=== PATIENT | female | born 1955 | race Caucasian/White ===

== ENCOUNTER 2020-11-01 21:53 | Emergency (ER) | payer OTHER ==
[~2020-11-01 21:53] MED LIST: ASPIRIN EC81 MG PO; CYCLOBENZAPRINE10 MG PO; MAGNESIUM250 MG PO; NAPROXEN500 MG PO; POTASSIUM99 M1 PO; PRINIVIL10 MG PO; TOPROL XL 25MG25 MG PO; XELJANZ XR11 MG PO; ZOCOR20 MG PO
[2020-11-02] MEDS ORDERED: NORCO 5-325 TA1 EACH PO (01:05)
[2020-11-03] MEDS ORDERED: PRINIVIL20 MG PO (09:18)
[2020-11-03] MEDS ORDERED: TOPROL XL 50 MG50 MG PO (09:18)
[2020-11-03] MEDS ORDERED: NAPROXEN500 MG PO (09:19)
[2020-11-08] MEDS ORDERED: PERCOCET 5-3251 EACH PO (08:08)
[2020-11-08] MEDS ORDERED: VIBRAMYCIN100 MG PO (10:47)
== END 2020-11-02 01:25 | disposition home or self-care (01) ==
LOC: FER 21:53
DX: S52.501A Unspecified fracture of the lower end of right radius, initial encounter for closed fracture (principal); S52.611A Displaced fracture of right ulna styloid process, initial encounter for closed fracture; I10 Essential (primary) hypertension; C80.1 Malignant (primary) neoplasm, unspecified; Z79.899 Other long term (current) drug therapy; Z87.09 Personal history of other diseases of the respiratory system; Z79.82 Long term (current) use of aspirin; W00.0XXA Fall on same level due to ice and snow, initial encounter; Y92.009 Unspecified place in unspecified non-institutional (private) residence as the place of occurrence of the external cause
CPT/HCPCS: 73110; J1642

== ENCOUNTER → 2020-11-08 | Day surgery (SDC) | payer OTHER ==
[~2020-11-08] MED LIST changes: +LEVAQUIN750 MG PO; +MEDROL 4MG DOSEP4 MG PO; +NORCO 5-325 TA1 EACH PO; +PERCOCET 5-3251 EACH PO; +PRINIVIL20 MG PO; +TOPROL XL 50 MG50 MG PO; +VIBRAMYCIN100 MG PO
[2020-11-08 07:45] LABS: HCT 32.9 % (37.0-47.0); HGB 10.5 g/dl (12.5-16.0); MCH 28.9 pg (25.0-31.0); MCHC 31.9 g/dL (32.0-36.0); MCV 90.6 fL (78.0-100.0); MPV 9.5 fL (6.0-9.5); RBC 3.63 M/uL (4.20-5.40); RDW 17.6 % (11.5-14.0)
[2020-11-08 08:24] LABS: ALBUMIN 2.7 g/dL (3.4-5.0); BILIRUBIN - TOTAL 0.4 mg/dL (0.2-1.0); BUN/CREAT RATIO (CALC) 18.4 RATIO; CREATININE 0.49 mg/dL (0.51-0.95); POTASSIUM 4.2 mmol/L (3.5-5.1); TOTAL PROTEIN 6.7 g/dL (6.4-8.2)
== END | disposition home or self-care (01) ==
LOC: FAS 06:30
PROVIDERS: Orthopaedic Surgery
DX: S52.571A Other intraarticular fracture of lower end of right radius, initial encounter for closed fracture (principal); I25.10 Atherosclerotic heart disease of native coronary artery without angina pectoris; I51.9 Heart disease, unspecified; K21.9 Gastro-esophageal reflux disease without esophagitis; K58.9 Irritable bowel syndrome, unspecified; E78.00 Pure hypercholesterolemia, unspecified; I10 Essential (primary) hypertension; F17.200 Nicotine dependence, unspecified, uncomplicated; M19.90 Unspecified osteoarthritis, unspecified site; V00.321A Fall from snow-skis, initial encounter; Y92.9 Unspecified place or not applicable; Z79.899 Other long term (current) drug therapy; Z20.822 Contact with and (suspected) exposure to COVID-19; Z95.5 Presence of coronary angioplasty implant and graft; Z85.118 Personal history of other malignant neoplasm of bronchus and lung
CPT/HCPCS: 36415; 73100; 76000; 80053; C1713; C1769; J0690; J0735; J1100; J2250; J2704; J2795; J3010; J7120

== ENCOUNTER 2021-04-08 21:22 | Emergency (ER) | payer MEDICARE, OTHER ==
[~2021-04-08 21:22] MED LIST changes: -LEVAQUIN750 MG PO; -MEDROL 4MG DOSEP4 MG PO
[2021-04-08 23:06] LABS: BASOPHIL 0.6 % (0-2); HGB 12.5 g/dl (12.5-16.0); LYMPHOCYTE 14.9 % (15-48); MCH 29.1 pg (25.0-31.0); MCHC 32.1 g/dL (32.0-36.0); MCV 90.7 fL (78.0-100.0); MONOCYTE 11.3 % (0-12); MPV 9.6 fL (6.0-9.5); NEUTROPHIL 71.9 % (41-80); NRBC 0; PLT 322 K/uL (150-400); WBC 6.3 K/uL (4.0-10.5)
[2021-04-08 23:23] LABS: INR 1.12 (0.9-1.2); PROTHROMBIN TIME 13.8 SECONDS (11.8-13.4); PTT 27.2 SECONDS (24.4-34.7)
[2021-04-08 23:24] LABS: D-DIMER 1.52 ug/mLFEU (0.00-0.41)
[2021-04-08 23:32] LABS: PRO-BNP 1063 pg/mL (<125)
[2021-04-08 23:39] LABS: ALBUMIN 2.9 g/dL (3.4-5.0); BILIRUBIN - TOTAL 0.3 mg/dL (0.2-1.0); BUN/CREAT RATIO (CALC) 19.1 RATIO; CREATININE 0.47 mg/dL (0.51-0.95); GLOBULIN (CALCULATION) 3.6 g/dL; POTASSIUM 4.1 mmol/L (3.5-5.1); TOTAL PROTEIN 6.5 g/dL (6.4-8.2)
[2021-04-09] MEDS ORDERED: MEDROL 4MG DOSEP4 MG PO (03:15)
[2021-04-09] MEDS ORDERED: LEVAQUIN750 MG PO (03:16)
== END 2021-04-09 03:35 | disposition home or self-care (01) ==
LOC: FER 21:22
PROVIDERS: Emergency Medicine Emergency Medical Services
DX: R07.89 Other chest pain (principal); R09.02 Hypoxemia; R00.0 Tachycardia, unspecified; R91.1 Solitary pulmonary nodule; J98.11 Atelectasis; E11.9 Type 2 diabetes mellitus without complications; I10 Essential (primary) hypertension; F17.210 Nicotine dependence, cigarettes, uncomplicated; Z20.822 Contact with and (suspected) exposure to COVID-19; Z95.5 Presence of coronary angioplasty implant and graft; Z85.118 Personal history of other malignant neoplasm of bronchus and lung; Z90.49 Acquired absence of other specified parts of digestive tract; Z98.890 Other specified postprocedural states
CPT/HCPCS: 36415; 36600; 71045; 71275; 80053; 82803; 83880; 84484; 85025; 85379; 85610; 85730; 87070; 87205; 93005; J0692; J1642; J1885; J2270; J2405; J2543; J2930; U0002

== ENCOUNTER 2021-06-19 11:05 | Emergency (ER) | payer MEDICARE, OTHER ==
[~2021-06-19 11:05] MED LIST changes: +LEVAQUIN750 MG PO; +MEDROL 4MG DOSEP4 MG PO
[2021-06-19 12:37] LABS: BASOPHIL 0.5 % (0-2); EOSINOPHIL 0.2 % (0-7); HCT 51.8 % (37.0-47.0); HGB 15.3 g/dl (12.5-16.0); LYMPHOCYTE 4.5 % (15-48); MCH 27.8 pg (25.0-31.0); MCHC 29.5 g/dL (32.0-36.0); MONOCYTE 9.6 % (0-12); MPV 9.8 fL (6.0-9.5); NEUTROPHIL 84.3 % (41-80); NRBC 0; PLT 288 K/uL (150-400); RBC 5.51 M/uL (4.20-5.40); RDW 18.1 % (11.5-14.0); WBC 8.7 K/uL (4.0-10.5)
[2021-06-19 12:44] LABS: BUN/CREAT RATIO (CALC) 14.9 RATIO; CREATININE 0.47 mg/dL (0.51-0.95)
[2021-06-19 13:38] LABS: BILIRUBIN NEGATIVE (NEGATIVE); BLOOD NEGATIVE Ery/uL (NEGATIVE); CLARITY CLEAR (CLEAR); COLOR YELLOW (YELLOW); GLUCOSE (U) NORMAL (NORMAL); LEUKOCYTES NEGATIVE Leu/uL (NEGATIVE); NITRITE NEGATIVE (NEGATIVE); PROTEIN NEGATIVE (NEGATIVE); UROBILINOGEN 0.2 mg/dL (0.2-1.0)
== END 2021-06-19 14:53 | disposition home or self-care (01) ==
LOC: FER 11:05
PROVIDERS: Nurse Practitioner Family
DX: S32.511A Fracture of superior rim of right pubis, initial encounter for closed fracture (principal); S32.591A Other specified fracture of right pubis, initial encounter for closed fracture; S20.211A Contusion of right front wall of thorax, initial encounter; I10 Essential (primary) hypertension; E11.9 Type 2 diabetes mellitus without complications; F17.210 Nicotine dependence, cigarettes, uncomplicated; Z95.5 Presence of coronary angioplasty implant and graft; Z98.890 Other specified postprocedural states; Z20.822 Contact with and (suspected) exposure to COVID-19; W19.XXXA Unspecified fall, initial encounter; Y92.009 Unspecified place in unspecified non-institutional (private) residence as the place of occurrence of the external cause
CPT/HCPCS: 36415; 71101; 73502; 80048; 81003; 85025; J2270; J2405; U0002